=== PATIENT | male | born 1965 | race Caucasian/White ===

== ENCOUNTER 2020-04-15 14:44 | Emergency (ER) | payer MEDICAID, OTHER ==
--- NOTE | 2020-04-15 15:25 | EDM.PDOC ---
ED HPI GENERAL MEDICAL PROBLEM - General Chief Complaint: Syncope Time Seen by Provider: 04/15/20 15:22 Source of Information: Reports: Patient, RN Notes Reviewed History Limitations: Reports: No Limitations - History of Present Illness INITIAL COMMENTS - FREE TEXT/NARRATIVE: 54-year-old gentleman presents emergency department today following a syncopal event in the Ortho clinic he admits that he has not eaten all day and he was quite anxious about having the cast cut off by 1 of his family members he felt the possibility of the cast cutter going too deep and causing problems when they started cutting the cast out as the last thing he remembers. He did have a syncopal event while in the Ortho clinic [facility] was called however after he was laid down and no longer sitting in a chair he started to respond quickly he had good blood blood pressure and pulse throughout the whole event. At this time he admits he is hungry he thinks he just passed out due to the thought of the cast saw and listening to it that the cast. He feels he is back to his normal state he never had any chest pain no palpitations no shortness of breath. - Related Data Allergies Allergy/AdvReac Type Severity Reaction Status Date / Time paper tape AdvReac Other Uncoded 04/15/20 15:01 Past Medical History HEENT History: Reports: Impaired Vision Cardiovascular History: Reports: Blood Clots/VTE/DVT, Bypass, CAD, Hypertension, [place], Prior Cardiac Arrest, Stents, Other (See Below) Other Cardiovascular History: stents legs/kidneys/heart Respiratory History: Reports: Asthma, COPD Neurological History: Reports: CVA, Seizure Endocrine/Metabolic History: Reports: Diabetes, Type II, Other (See Below) Other Endocrine/Metabolic History: "used to be diabetic" Hematologic History: Reports: Anticoagulation Therapy - Past Surgical History Cardiovascular Surgical History: Reports: Coronary Artery Bypass, Coronary Artery Stent, Vascular Surgery Neurological Surgical History: Reports: Discectomy Social & Family History - Tobacco Use Smoking Status *Q: Light Tobacco Smoker Years of Tobacco use: 35 Packs/Tins Daily: 0.5 - Caffeine Use Caffeine Use: Reports: Soda - Recreational Drug Use Recreational Drug Use: Yes Recreational Drug Type: Reports: Marijuana/Hashish Recreational Drug Use Frequency: Weekly ED ROS GENERAL - Review of Systems Review Of Systems: See Below Constitutional: Reports: No Symptoms HEENT: Reports: No Symptoms Respiratory: Reports: No Symptoms. Denies: Shortness of Breath Cardiovascular: Reports: Syncope. Denies: Chest Pain GI/Abdominal: Reports: No Symptoms ED EXAM, GENERAL - Physical Exam Exam: See Below Exam Limited By: No Limitations General Appearance: Alert, WD/WN, No Apparent Distress Respiratory/Chest: No Respiratory Distress, Lungs Clear, Normal Breath Sounds, No Accessory Muscle Use, Chest Non-Tender Cardiovascular: Regular Rate, Rhythm, No Murmur GI/Abdominal: Soft, Non-Tender Course - Vital Signs Last Recorded V/S: Last Vital Signs Temp 96.9 F 04/15/20 14:50 Pulse 57 L 04/15/20 15:35 Resp 18 04/15/20 15:35 BP 117/67 04/15/20 15:35 Pulse Ox 97 04/15/20 15:35 Departure - Departure Time of Disposition: 16:00 Disposition: Home, Self-Care 01 Condition: Fair Clinical Impression: Vasovagal syncope Instructions: Syncope, [id number] Referrals: PCP,None [Primary Care Provider] - Forms: ED Department Discharge Additional Instructions: Continue with your regular medications, please followup with your primary care provider in 3-5 days if not better, please call return to the emergency department with worsening of symptoms. Sepsis Event Note (ED) - Evaluation Sepsis Screening Result: No Definite Risk - Focused Exam Vital Signs: Vital Signs Temp Pulse Resp BP Pulse Ox 04/15/20 15:35 57 L 18 117/67 97 04/15/20 15:11 58 L 16 121/64 100 04/15/20 14:50 96.9 F 57 L 21 H 151/70 H 100 - Assessment/Plan Plan: Assessment Acuity = acute Site and laterality = vasovagal syncopal event Etiology = lack of food and observing a medical procedure Manifestations = none Location of injury = Home Lab values = EKG demonstrates sinus rhythm no signs of ST elevation or depression, Plan Did receive 1 L fluids while in the ED as well as some food was able to ambulate around the ED at his normal pace feels he is back to his normal state of health This note was dictated using [employer] voice recognition software please call with any questions on syntax or grammar.
== END 2020-04-15 16:11 | disposition home or self-care (01) ==
LOC: JP.ED 14:44
DX: R55 Syncope and collapse (principal); I25.10 Atherosclerotic heart disease of native coronary artery without angina pectoris; I10 Essential (primary) hypertension; I25.2 Old myocardial infarction; J44.9 Chronic obstructive pulmonary disease, unspecified; R56.9 Unspecified convulsions; E11.9 Type 2 diabetes mellitus without complications; F17.210 Nicotine dependence, cigarettes, uncomplicated; Z86.73 Personal history of transient ischemic attack (TIA), and cerebral infarction without residual deficits; Z91.048 Other nonmedicinal substance allergy status; Z95.5 Presence of coronary angioplasty implant and graft
CPT/HCPCS: 99283